=== PATIENT | female | born 1940 | race Native Hawaiian/Other Pacific Islander ===

== ENCOUNTER 2017-09-20 22:45 | Inpatient (IN) | payer MEDICARE ==
[~2017-09-20] VITALS: Ht 165.1 cm; Wt 63.5 kg
[2017-09-20] MEDS ORDERED: IV NORMAL SALINE 1000 ML BAG IV ONE (23:00)
[2017-09-20] MEDS ORDERED: NITROGLYCERIN 0.4 MG/TAB BOTTLE SL ONE ×2 (23:15→23:17)
[2017-09-20 23:21] LABS: BASOPHILS % (AUTO) 0.5 % (0.0-2.0); EOSINOPHILS # (AUTO) 0.2 K/uL (0.0-0.7); HEMATOCRIT 29.9 % (31.2-41.9); HEMOGLOBIN 10.2 g/dL (10.9-14.3); LYMPHOCYTES # (AUTO) 2.2 K/uL (20.0-40.0); LYMPHOCYTES % (AUTO) 24.9 % (20.5-51.5); MEAN CORPUSCULAR HGB CONC 34 g/dL (32.3-35.6); MEAN CORPUSCULAR VOLUME 93.7 fL (75.5-95.3); MONOCYTES % (AUTO) 11.3 % (0.0-11.0); NEUTROPHILS # (AUTO) 5.4 K/uL (1.8-8.9); NEUTROPHILS % (AUTO) 61.3 % (38.5-71.5); PLATELET COUNT (AUTO) 400 K/uL (179-408); RED BLOOD CELL COUNT(AUTO) 3.19 MIL/uL (3.63-4.92); WHITE BLOOD COUNT (AUTO) 8.8 K/uL (3.8-11.8)
[2017-09-20] MEDS ORDERED: NITROGLYCERIN OINT 1 GM PACKET TP ONE (23:30)
[2017-09-20 23:40] LABS: ALANINE AMINOTRANSFERASE 13 U/L (14-59); ALKALINE PHOSPHATASE 45 U/L (50-136); ASPARTATE AMINOTRANSFERASE 18 U/L (15-37); BILIRUBIN,DIRECT 0.2 mg/dL (0.0-0.2); BILIRUBIN,TOTAL 0.5 mg/dL (0.2-1.0); CARBON DIOXIDE 30 mmol/L (21-32); CHLORIDE 98 mmol/L (98-107); CREATININE 0.9 mg/dL (0.6-1.3); GLUCOSE 74 mg/dL (74-106); TOTAL PROTEIN, SERUM 6.3 g/dL (6.4-8.2); UREA NITROGEN, BLOOD 6 mg/dL (7-18)
[2017-09-20 23:44] LABS: POTASSIUM 2.3 mmol/L (3.5-5.1)
[2017-09-20] MEDS ORDERED: PANTOPRAZOLE SODIUM 40 MG VIAL IV ONE (23:45)
[2017-09-20] MEDS: POTASSIUM CHLORIDE 50 ML IV SCH (23:50)
[2017-09-20] MEDS ORDERED: POTASSIUM CHLORIDE 50 ML ONE (23:51)
[2017-09-21] MEDS ORDERED: ONDANSETRON 4 MG/2 ML VIAL IV ONE
[2017-09-21] MEDS ORDERED: POTASSIUM CHLORIDE 20 MEQ TAB.PRT.SR PO ONE
[2017-09-21] MEDS: POTASSIUM CHLORIDE 50 ML IV SCH ×2 (00:01→03:16)
[2017-09-21] MEDS ORDERED: ONDANSETRON 4 MG/2 ML VIAL ONE (00:05)
[2017-09-21] MEDS ORDERED: MORPHINE SULFATE 4 MG/1 ML DISP.SYRIN ONE ×2 (00:05→01:04)
[2017-09-21] MEDS ORDERED: PANTOPRAZOLE SODIUM 40 MG VIAL ONE (00:05)
[2017-09-21] MEDS ORDERED: POTASSIUM CHLORIDE 20 MEQ TAB.PRT.SR ONE (00:05)
[2017-09-21] MEDS ORDERED: GLIP5TAB13 PO (00:11)
[2017-09-21] MEDS ORDERED: SUCR1TAB31 PO (00:11)
[2017-09-21] MEDS ORDERED: ALLO100T PO (00:11)
[2017-09-21] MEDS ORDERED: CARV25TA2 PO (00:11)
[2017-09-21] MEDS ORDERED: OXYC-128 PO (00:11)
[2017-09-21] MEDS ORDERED: TOPI100C6 PO (00:11)
[2017-09-21] MEDS ORDERED: FURO40TA5 PO (00:11)
[2017-09-21] MEDS ORDERED: POTA10TA10 PO (00:11)
[2017-09-21] MEDS ORDERED: ESOM40CA PO (00:11)
[2017-09-21] MEDS ORDERED: ATOR10TA PO (00:11)
[2017-09-21] MEDS ORDERED: AMLO10TA2 PO (00:11)
[2017-09-21] MEDS ORDERED: RANO10003 PO (00:11)
[2017-09-21] MEDS ORDERED: LOSA100T15 PO (00:11)
[2017-09-21] MEDS ORDERED: ALPR0.5T8 PO (00:11)
[2017-09-21] MEDS ORDERED: ISOS60TA4 PO (00:11)
[2017-09-21] MEDS ORDERED: MAGN400C PO (00:11)
[2017-09-21] MEDS ORDERED: LEVE500T20 PO (00:11)
[2017-09-21] MEDS ORDERED: NITROGLYCERIN OINT 1 GM PACKET TP ONE (00:17)
[2017-09-21] MEDS ORDERED: MAGNESIUM SULFATE/D5W 100 ML ONE (01:10)
[2017-09-21] MEDS ORDERED: MAGNESIUM SULFATE/D5W 100 ML IV SCH (01:15)
[2017-09-21] MEDS ORDERED: MORPHINE SULFATE 2 MG/1 ML DISP.SYRIN IV ONE ×2 (01:15)
[2017-09-21] MEDS ORDERED: CEFTRIAXONE 1 G in IV DEXTROSE 5% 50 ML IV ONE (02:15)
[2017-09-21] MEDS ORDERED: AZITHROMYCIN IV 500 MG in IV DEXTROSE 5% 250 ML IV ONE (02:15)
[2017-09-21] MEDS ORDERED: LEVETIRACETAM IV 500 MG in IV DEXTROSE 5% 100 ML IV ONE (02:15)
[2017-09-21] MEDS ORDERED: IOHEXOL 350 100 ML INFUS..BTL ONE (02:37)
[2017-09-21] MEDS ORDERED: IV NORMAL SALINE 100 ML ONE (02:37)
[2017-09-21] MEDS ORDERED: IV NORMAL SALINE 250 ML BAG IV ONE (03:00)
[2017-09-21] MEDS ORDERED: POT CHLORIDE/POT BICARB/CIT AC 25 MEQ TABLET.EFF PO ONE (03:00)
[2017-09-21] MEDS ORDERED: POTASSIUM BICARBONATE/CIT AC 25 MEQ TABLET.EFF ONE (03:03)
[2017-09-21] MEDS ORDERED: POTASSIUM CHLORIDE 50 ML ONE (03:04)
[2017-09-21] MEDS ORDERED: LEVETIRACETAM 500 MG/5 ML VIAL IV ONE (03:50)
[2017-09-21] MEDS ORDERED: CEFTRIAXONE 1 G VIAL ONE (04:01)
[2017-09-21] MEDS ORDERED: AZITHROMYCIN 500 MG VIAL IV ONE (04:47)
[2017-09-21] MEDS ORDERED: ZOLPIDEM 5 MG TABLET PO PRN (05:30)
[2017-09-21] MEDS ORDERED: MAGNESIUM HYDROXIDE 30 ML LIQUID UDC PO PRN (05:30)
[2017-09-21] MEDS ORDERED: CEFTRIAXONE 1 G in IV DEXTROSE 5% 50 ML IV SCH (05:30)
[2017-09-21] MEDS ORDERED: ACETAMINOPHEN 325 MG TABLET PO PRN (05:30)
[2017-09-21] MEDS ORDERED: Z GUARD REMEDY PASTE 57 GM TUBE TOP PRN (05:30)
[2017-09-21] MEDS ORDERED: HYDROCODONE/APAP 5-325MG TABLET PO PRN (05:30)
[2017-09-21] MEDS ORDERED: ONDANSETRON 4 MG/2 ML VIAL IV PRN (05:30)
[2017-09-21 05:34] VITALS: BP 122/69
[2017-09-21] MEDS: ENOXAPARIN SODIUM 40 MG/0.4 ML DISP.SYRIN SQ SCH (06:40)
[2017-09-21 07:16] LABS: ALANINE AMINOTRANSFERASE 12 U/L (14-59); ALKALINE PHOSPHATASE 41 U/L (50-136); ASPARTATE AMINOTRANSFERASE 13 U/L (15-37); BILIRUBIN,TOTAL 0.4 mg/dL (0.2-1.0); CARBON DIOXIDE 29 mmol/L (21-32); CHLORIDE 99 mmol/L (98-107); CREATININE 0.8 mg/dL (0.6-1.3); GLUCOSE 140 mg/dL (74-106); MAGNESIUM 1.6 mg/dL (1.8-2.4); PHOSPHOROUS 2.4 mg/dL (2.5-4.9); TOTAL PROTEIN, SERUM 5.9 g/dL (6.4-8.2); UREA NITROGEN, BLOOD 5 mg/dL (7-18)
[2017-09-21 07:39] LABS: BASOPHILS % (AUTO) 0.3 % (0.0-2.0); EOSINOPHILS # (AUTO) 0.2 K/uL (0.0-0.7); EOSINOPHILS % (AUTO) 2.3 % (0.0-7.0); HEMATOCRIT 28.5 % (31.2-41.9); HEMOGLOBIN 9.6 g/dL (10.9-14.3); LYMPHOCYTES # (AUTO) 1.4 K/uL (20.0-40.0); LYMPHOCYTES % (AUTO) 14.5 % (20.5-51.5); MEAN CORPUSCULAR HEMOGLOBIN 31.8 uug (24.7-32.8); MEAN CORPUSCULAR HGB CONC 34 g/dL (32.3-35.6); MEAN CORPUSCULAR VOLUME 94.9 fL (75.5-95.3); MONOCYTES % (AUTO) 10.1 % (0.0-11.0); NEUTROPHILS # (AUTO) 7.2 K/uL (1.8-8.9); NEUTROPHILS % (AUTO) 72.8 % (38.5-71.5); PLATELET COUNT (AUTO) 342 K/uL (179-408); WHITE BLOOD COUNT (AUTO) 9.9 K/uL (3.8-11.8)
[2017-09-21 07:41] LABS: POTASSIUM 2.5 mmol/L (3.5-5.1)
[2017-09-21] MEDS: IV D5 1/2 NS 1000 ML 1,000 ML IV PRN (07:53)
[2017-09-21] MEDS ORDERED: POTASSIUM CHLORIDE 20 MEQ POWDER PACKET PO ONE (11:15)
[2017-09-21 11:34] VITALS: BP 111/52
[2017-09-21] MEDS ORDERED: ALPRAZOLAM 0.5 MG TABLET PO PRN (11:45)
[2017-09-21] MEDS ORDERED: OXYCODONE/APAP 5-325 MG TABLET PO PRN (11:45)
[2017-09-21] MEDS: MAGNESIUM SULFATE/D5W 100 ML IV SCH ×2 (12:33→12:55)
[2017-09-21] MEDS ORDERED: LEVETIRACETAM 500 MG TABLET PO SCH (12:37)
[2017-09-21] MEDS ORDERED: SUCRALFATE 1 G TABLET PO SCH (12:38)
[2017-09-21] MEDS: ALLOPURINOL 100 MG TABLET PO SCH (12:54)
[2017-09-21] MEDS: LOSARTAN POTASSIUM 50 MG TABLET PO SCH (12:54)
[2017-09-21] MEDS: AMLODIPINE 10 MG TABLET PO SCH (12:55)
[2017-09-21] MEDS ORDERED: MORPHINE SULFATE 4 MG/1 ML DISP.SYRIN IV PRN (13:00)
[2017-09-21] MEDS ORDERED: MORPHINE SULFATE 2 MG/1 ML DISP.SYRIN IV PRN (13:00)
[2017-09-21] MEDS: predniSONE 10 MG TABLET PO SCH (15:11)
[2017-09-21] MEDS: CETIRIZINE HCL 10 MG TABLET PO SCH ×2 (15:13→20:06)
[2017-09-21] MEDS ORDERED: NEUTRA PHOS PACKET PO ONE (15:15)
[2017-09-21 15:24] LABS: IRON, SERUM 43 ug/dL (50-175)
[2017-09-21 15:44] VITALS: BP 136/55
[2017-09-21 16:09] LABS: *BILIRUBIN,URIN NEGATIVE (NEGATIVE); *BLOOD, URINE NEGATIVE (NEGATIVE); *CLARITY,URINE SLIGHTLY CLOUDY (CLEAR); *COLOR,URINE YELLOW (YELLOW); *KETONES,URINE NEGATIVE (NEGATIVE); *PROTEIN,URINE TRACE (NEGATIVE); *UROBILINOGEN,URINE 0.2 E.U./dl (NORMAL); LEUKOCYTE ESTERASE ,URINE 1+ (NEGATIVE); NITRITE, URINE POSITIVE (NEGATIVE); PH,URINE 7.5 (5.0-8.0); UGLUCOSE NEGATIVE (NEGATIVE)
[2017-09-21] MEDS: SUCRALFATE 1 G/10 ML LIQUID UDC PO SCH (16:38)
[2017-09-21 16:51] LABS: RBC,URINE 0-3 /HPF (0-3)
[2017-09-21 16:52] LABS: BACTERIA,URINE MANY /HPF (NONE SEEN); MUCUS,URINE FEW /LPF (0-FEW); SQUAMOUS EPITHELIAL CELL,UR MODERATE /HPF (NONE SEEN); WBC,URINE 20-50 /HPF (0-3)
[2017-09-21] MEDS: FUROSEMIDE 40 MG TABLET PO SCH (17:01)
[2017-09-21] MEDS: CARVEDILOL 25 MG TABLET PO SCH (17:06)
[2017-09-21] MEDS: POTASSIUM CHLORIDE 10 MEQ, LIDOCAINE-MPF 1% 1 ML in IV DEXTROSE 5% 100 ML IV SCH ×3 (17:06→21:07)
[2017-09-21] MEDS: ISOSORBIDE MONONITRATE 60 MG TAB.SR.24H PO SCH (17:06)
[2017-09-21] MEDS ORDERED: TOPIRAMATE 100 MG TABLET PO STA (18:48)
[2017-09-21] MEDS ORDERED: LORAZEPAM 2 MG/1 ML VIAL IV PRN (19:00)
[2017-09-21] MEDS ORDERED: TROKENDI 100 MG PO ONE (19:00)
[2017-09-21 20:00] VITALS: BP 107/59
[2017-09-21] MEDS: ATORVASTATIN 10 MG TABLET PO SCH (20:06)
[2017-09-21] MEDS: RANOLAZINE 500 MG TAB.ER.12H PO SCH (20:06)
[2017-09-21] MEDS: LEVETIRACETAM 500 MG TABLET PO SCH (20:06)
[2017-09-21] MEDS ORDERED: KETOROLAC TROMETHAMINE 15 MG INJ IVP PRN (22:00)
[2017-09-22] VITALS: BP 106/61
[2017-09-22] MEDS: IV D5 1/2 NS 1000 ML 1,000 ML IV PRN (00:33)
[2017-09-22 04:00] VITALS: BP 113/68
[2017-09-22] MEDS: CEFTRIAXONE 1 G in IV DEXTROSE 5% 50 ML IV SCH (05:33)
[2017-09-22] MEDS: AZITHROMYCIN IV 500 MG in IV DEXTROSE 5% 250 ML IV SCH (05:33)
[2017-09-22] MEDS: ENOXAPARIN SODIUM 40 MG/0.4 ML DISP.SYRIN SQ SCH (06:20)
[2017-09-22] MEDS: glipiZIDE 5 MG TABLET PO SCH ×2 (06:57→07:30)
[2017-09-22] MEDS: SUCRALFATE 1 G/10 ML LIQUID UDC PO SCH ×3 (06:57→16:36)
[2017-09-22 07:05] LABS: ALANINE AMINOTRANSFERASE 10 U/L (14-59); ALKALINE PHOSPHATASE 35 U/L (50-136); ASPARTATE AMINOTRANSFERASE 10 U/L (15-37); BILIRUBIN,TOTAL 0.3 mg/dL (0.2-1.0); CARBON DIOXIDE 28 mmol/L (21-32); CHLORIDE 97 mmol/L (98-107); CHOLESTEROL 203 mg/dL (<200); CREATININE 0.7 mg/dL (0.6-1.3); GLUCOSE 96 mg/dL (74-106); HDL CHOLESTEROL 58 mg/dL (40-60); MAGNESIUM 1.7 mg/dL (1.8-2.4); PHOSPHOROUS 1.8 mg/dL (2.5-4.9); TOTAL PROTEIN, SERUM 5.3 g/dL (6.4-8.2); TRIGLYCERIDES 120 MG/DL (30-150); UREA NITROGEN, BLOOD 4 mg/dL (7-18)
[2017-09-22 07:09] LABS: POTASSIUM 2.6 mmol/L (3.5-5.1)
[2017-09-22 07:11] LABS: BASOPHILS % (AUTO) 0.2 % (0.0-2.0); EOSINOPHILS # (AUTO) 0.1 K/uL (0.0-0.7); EOSINOPHILS % (AUTO) 1.5 % (0.0-7.0); LYMPHOCYTES % (AUTO) 32.5 % (20.5-51.5); MEAN CORPUSCULAR HEMOGLOBIN 32.2 uug (24.7-32.8); MEAN CORPUSCULAR HGB CONC 34 g/dL (32.3-35.6); MEAN CORPUSCULAR VOLUME 94.7 fL (75.5-95.3); MONOCYTES # (AUTO) 0.7 K/uL (2.0-10.0); MONOCYTES % (AUTO) 10.6 % (0.0-11.0); NEUTROPHILS # (AUTO) 3.4 K/uL (1.8-8.9); NEUTROPHILS % (AUTO) 55.2 % (38.5-71.5); PLATELET COUNT (AUTO) 316 K/uL (179-408)
[2017-09-22 07:53] LABS: HEMATOCRIT 25.4 % (31.2-41.9); HEMOGLOBIN 8.6 g/dL (10.9-14.3); RED BLOOD CELL COUNT(AUTO) 2.68 MIL/uL (3.63-4.92); WHITE BLOOD COUNT (AUTO) 6.1 K/uL (3.8-11.8)
[2017-09-22] MEDS ORDERED: Medication Not On Formulary EA (Losartan Potassium 100 MG) PO SCH (09:00)
[2017-09-22] MEDS: AMLODIPINE 10 MG TABLET PO SCH (09:00)
[2017-09-22] MEDS: FUROSEMIDE 40 MG TABLET PO SCH ×2 (09:00→10:12)
[2017-09-22] MEDS ORDERED: TOPIRAMATE 100 MG PO SCH (09:00)
[2017-09-22] MEDS: PANTOPRAZOLE SODIUM 40 MG VIAL IV SCH (10:08)
[2017-09-22] MEDS: CARVEDILOL 25 MG TABLET PO SCH ×2 (10:09→18:00)
[2017-09-22] MEDS: LOSARTAN POTASSIUM 50 MG TABLET PO SCH (10:11)
[2017-09-22] MEDS: ISOSORBIDE MONONITRATE 60 MG TAB.SR.24H PO SCH ×2 (10:11→17:00)
[2017-09-22] MEDS: LEVETIRACETAM 500 MG TABLET PO SCH ×2 (10:12→22:20)
[2017-09-22] MEDS: predniSONE 10 MG TABLET PO SCH (10:12)
[2017-09-22] MEDS: TROKENDI PO SCH (10:12)
[2017-09-22] MEDS: RANOLAZINE 500 MG TAB.ER.12H PO SCH ×2 (10:13→22:20)
[2017-09-22] MEDS: ALLOPURINOL 100 MG TABLET PO SCH (10:13)
[2017-09-22 11:21] VITALS: BP 118/64
[2017-09-22] MEDS: POTASSIUM CHLORIDE 10 MEQ, LIDOCAINE-MPF 1% 1 ML in IV DEXTROSE 5% 100 ML IV SCH ×4 (12:02→15:43)
[2017-09-22] MEDS ORDERED: POTASSIUM CHLORIDE 20 MEQ POWDER PACKET PO ONE (12:54)
[2017-09-22 15:12] VITALS: BP 119/60
[2017-09-22] MEDS ORDERED: NEUTRA PHOS PACKET PO ONE (15:45)
[2017-09-22] MEDS ORDERED: BISACODYL 5 MG TABLET.DR PO ONE (16:15)
[2017-09-22] MEDS: MAGNESIUM SULFATE/D5W 100 ML IV SCH ×2 (16:27→17:53)
[2017-09-22 20:06] VITALS: BP 110/56
[2017-09-22] MEDS: LACTOBACILLUS RHAMNOSUS GG 1 EACH CAPSULE PO SCH (21:00)
[2017-09-22] MEDS: ATORVASTATIN 10 MG TABLET PO SCH (21:00)
[2017-09-22] MEDS ORDERED: SUCRALFATE 1 G/10 ML LIQUID UDC PO PRN (21:30)
[2017-09-22] MEDS: CETIRIZINE HCL 10 MG TABLET PO SCH (22:20)
[2017-09-22] MEDS: IV NS 1000 ML 1,000 ML IV PRN (22:49)
[2017-09-23] MEDS: CEFTRIAXONE 1 G in IV DEXTROSE 5% 50 ML IV SCH (04:28)
[2017-09-23] MEDS: AZITHROMYCIN IV 500 MG in IV DEXTROSE 5% 250 ML IV SCH (04:52)
[2017-09-23 04:53] VITALS: BP 112/53
[2017-09-23] MEDS: ENOXAPARIN SODIUM 40 MG/0.4 ML DISP.SYRIN SQ SCH (05:52)
[2017-09-23] MEDS: SUCRALFATE 1 G/10 ML LIQUID UDC PO SCH ×2 (06:00→11:53)
[2017-09-23 06:08] LABS: BASOPHILS % (AUTO) 0.1 % (0.0-2.0); EOSINOPHILS # (AUTO) 0.1 K/uL (0.0-0.7); EOSINOPHILS % (AUTO) 1.5 % (0.0-7.0); HEMATOCRIT 24.5 % (31.2-41.9); HEMOGLOBIN 8.4 g/dL (10.9-14.3); LYMPHOCYTES # (AUTO) 1.9 K/uL (20.0-40.0); LYMPHOCYTES % (AUTO) 27.8 % (20.5-51.5); MEAN CORPUSCULAR HEMOGLOBIN 32.3 uug (24.7-32.8); MEAN CORPUSCULAR HGB CONC 34 g/dL (32.3-35.6); MEAN CORPUSCULAR VOLUME 94.3 fL (75.5-95.3); MONOCYTES # (AUTO) 0.7 K/uL (2.0-10.0); NEUTROPHILS % (AUTO) 59.6 % (38.5-71.5); PLATELET COUNT (AUTO) 296 K/uL (179-408); WHITE BLOOD COUNT (AUTO) 6.7 K/uL (3.8-11.8)
[2017-09-23 07:53] LABS: CARBON DIOXIDE 28 mmol/L (21-32); CHLORIDE 100 mmol/L (98-107); CREATININE 0.8 mg/dL (0.6-1.3); GLUCOSE 110 mg/dL (74-106); MAGNESIUM 2.1 mg/dL (1.8-2.4); PHOSPHOROUS 1.9 mg/dL (2.5-4.9); POTASSIUM 2.9 mmol/L (3.5-5.1); UREA NITROGEN, BLOOD 4 mg/dL (7-18)
[2017-09-23] MEDS: CARVEDILOL 25 MG TABLET PO SCH ×2 (08:00→10:00)
[2017-09-23] MEDS: PANTOPRAZOLE SODIUM 40 MG VIAL IV SCH (08:27)
[2017-09-23] MEDS: LACTOBACILLUS RHAMNOSUS GG 1 EACH CAPSULE PO SCH ×2 (09:00→10:00)
[2017-09-23] MEDS: LOSARTAN POTASSIUM 50 MG TABLET PO SCH ×2 (09:00→10:00)
[2017-09-23] MEDS: TROKENDI PO SCH (10:01)
[2017-09-23] MEDS: LEVETIRACETAM 500 MG TABLET PO SCH (10:01)
[2017-09-23] MEDS: ISOSORBIDE MONONITRATE 60 MG TAB.SR.24H PO SCH (10:01)
[2017-09-23] MEDS: AMLODIPINE 10 MG TABLET PO SCH (10:01)
[2017-09-23] MEDS: RANOLAZINE 500 MG TAB.ER.12H PO SCH (10:02)
[2017-09-23] MEDS: predniSONE 10 MG TABLET PO SCH (10:02)
[2017-09-23] MEDS: ALLOPURINOL 100 MG TABLET PO SCH (10:02)
[2017-09-23 11:16] VITALS: BP 121/59
[2017-09-23 12:02] VITALS: BP 116/60
[2017-09-23] MEDS: IV NS 1000 ML 1,000 ML IV PRN (13:25)
[2017-09-23] MEDS ORDERED: POTASSIUM CHLORIDE 20 MEQ TAB.PRT.SR PO ONE ×2 (15:00→18:00)
== END 2017-09-23 14:55 | disposition hospice, home (50) | DRG 193 ==
LOC: ER 22:45 → TELE 09-21 04:20 → MED 09-22 15:31
PROVIDERS: ADMIT Internal Medicine; ATTEND Nurse Practitioner Acute Care
DX: J18.9 Pneumonia, unspecified organism (principal); E43 Unspecified severe protein-calorie malnutrition; C85.90 Non-Hodgkin lymphoma, unspecified, unspecified site; I27.20 Pulmonary hypertension, unspecified; I11.0 Hypertensive heart disease with heart failure; I42.9 Cardiomyopathy, unspecified; I50.30 Unspecified diastolic (congestive) heart failure; N28.1 Cyst of kidney, acquired; N39.0 Urinary tract infection, site not specified; K22.2 Esophageal obstruction; D64.9 Anemia, unspecified; E11.9 Type 2 diabetes mellitus without complications; K22.4 Dyskinesia of esophagus; Z74.01 Bed confinement status; G40.909 Epilepsy, unspecified, not intractable, without status epilepticus; E87.6 Hypokalemia; I25.2 Old myocardial infarction; K21.9 Gastro-esophageal reflux disease without esophagitis; Z79.899 Other long term (current) drug therapy; M10.9 Gout, unspecified; Z68.23 Body mass index [BMI] 23.0-23.9, adult; Z80.0 Family history of malignant neoplasm of digestive organs; N20.0 Calculus of kidney; Z90.49 Acquired absence of other specified parts of digestive tract; E04.2 Nontoxic multinodular goiter; D32.9 Benign neoplasm of meninges, unspecified; I25.10 Atherosclerotic heart disease of native coronary artery without angina pectoris; M48.56XD Collapsed vertebra, not elsewhere classified, lumbar region, subsequent encounter for fracture with routine healing; L50.5 Cholinergic urticaria; M75.102 Unspecified rotator cuff tear or rupture of left shoulder, not specified as traumatic; M75.101 Unspecified rotator cuff tear or rupture of right shoulder, not specified as traumatic; R09.02 Hypoxemia
CPT/HCPCS: 36415; 70030-TC; 71045; 71275; 82378; 83550; 83605; 83735; 84100; 85025; 85730; 87040; 87086; 92523; 92526; 93005; 93307; A4663; C9113; J0456; J0696; J1650; J1885; J1953; J2001; J2060; J2270; J2405; J3475; J3480; J3490; J7030; J7050; J7060; J7512; J8499; Q9967